=== PATIENT | male | born 2000 | race Two or more races ===

== ENCOUNTER 2021-02-10 16:48 | Emergency (ER) | payer OTHER ==
[2021-02-10] MEDS ORDERED: BUFFERED LIDOCAINE 10 ML SYRINGE SUBQ STA (16:54)
--- NOTE | 2021-02-10 16:55 | ED Physician Documentation ---
PD HPI WOUND RECHECK - Stated complaint Stated Complaint: LUMP ON WAIST - Histroy obtained from History obtained from: Patient (Worsening painful lump on the waistline for the last 6 months, much worse over the last few days with now redness and pain. No fevers.) Review of Systems Constitutional: reports: Reviewed and negative Eyes: reports: Reviewed and negative Ears: reports: Reviewed and negative Nose: reports: Reviewed and negative PD PAST MEDICAL HISTORY - Present Medications Home Medications: Ambulatory Orders Medication Instructions Recorded Confirmed HYDROcod/ACETAM 5/325 [[place] 5/325] 1 - 2 tab PO Q6H PRN #10 tablet 02/10/21 cephALEXin [Keflex] 500 mg PO Q6H #28 cap 02/10/21 - Allergies Allergies/Adverse Reactions: Allergies Allergy/AdvReac Type Severity Reaction Status Date / Time No Known Drug Allergies Allergy Verified 02/10/21 16:52 PD ED PE NORMAL - Vitals Vital signs reviewed: Yes - General General: Alert and oriented X 3, No acute distress - Derm Derm: Other (On the pubis he has what looks like an ingrown hair with surrounding cellulitis) - Neuro Neuro: Alert and oriented X 3, Normal speech Results - Vitals Vitals: Vital Signs - 24 hr 02/10/21 16:53 Temperature 37.1 C Heart Rate 88 Respiratory 20 Rate Blood Pressure 143/90 H O2 Saturation 97 Oxygen O2 Source Room air PD MEDICAL DECISION MAKING - ED course ED course: It looks like a pustular ingrown hair with surrounding cellulitis. It was locally infiltrated with buffered lidocaine and draped and then a stab incision was made and surprisingly no pus was obtained. Departure - Departure Disposition: 01 Home, Self Care Clinical Impression: Skin lesion, Cellulitis Condition: Good Record reviewed to determine appropriate education?: Yes Instructions: ED Infec Skin Cellulitis Prescriptions: cephALEXin [Keflex] 500 mg PO Q6H #28 cap HYDROcod/ACETAM 5/325 [[place] 5/325] 1 - 2 tab PO Q6H PRN #10 tablet PRN Reason: Pain Comments: Followup with your flight surgeon, discuss dermatology referral or biopsy As they feel appropriate. Return for new or worsening symptoms. I am prescribing a short course of narcotic pain medication for you. These are potentially dangerous and addictive medications that should be used carefully. These medications may constipate you. Take an lhzc-qxz-tiefqru stool softener (docusate) twice daily with plenty of water while taking these medications. If you go 24 hours without a bowel movement, take [id number] miralax, per package instructions. Do not drink or drive while taking these medications. If you received narcotic or sedating medications while in the emergency department, do not drive for 24 hours. Store this medication in a safe, secure place and out of reach of children. It is a violation of federal law to give or sell this medication to another person or to use in a manner other than prescribed. The ED will not refill narcotic prescriptions, including prescriptions lost or stolen. To dispose of unwanted medications: 1. [facility] [address] in [place] has a medication drop box. They accept prescription medications (in pill form) Monday through Monday 9:00 a.m. to 5:00 p.m. 2. The [facility] [employer] accepts prescription medications (in pill form only) for disposal year round. Call for more information. 3. Contact the [facility] for the next [facility] sponsored prescription drug collection event. , [phone], or [phone]; Note that many narcotic pain relievers also contain Tylenol/acetaminophen. Please ensure that your total dose of acetaminophen from all sources does not exceed 3 g (3000 mg) per day.
[2021-02-10 17:04] VITALS: BP 143/90
[2021-02-10] MEDS ORDERED: cephALEXin 250 MG CAPSULE PO STA (17:26)
== END 2021-02-10 17:47 | disposition home or self-care (01) ==
LOC: ED 16:48
DX: L03.319 Cellulitis of trunk, unspecified (principal)
CPT/HCPCS: 10060; 99282; 99283; A9270

== ENCOUNTER 2021-08-06 12:53 | Emergency (ER) | payer OTHER ==
--- NOTE | 2021-08-06 14:14 | XRAY Report ---
PROCEDURE: Elbow 3 View RT, x-ray INDICATIONS: Trauma TECHNIQUE: 3 views of the elbow were acquired. COMPARISON: None FINDINGS: Bones: No fractures or dislocations. No suspicious bony lesions. Soft tissues: No elbow joint effusion. No suspicious soft tissue calcifications. IMPRESSION: Unremarkable elbow radiographs Reviewed by: Tyrone Membreno MD on 08/06/2021 1:13 PM [facility] Approved by: Tyrone Membreno MD on 08/06/2021 1:13 PM [facility] Station ID: [id number]
--- NOTE | 2021-08-06 14:49 | ED Physician Documentation ---
History of Present Illness - Stated complaint Stated Complaint: RT ELBOW INJURY - Chief complaint Chief Complaint: Ext Problem - Additonal information Additional information: 21-year-old male presents the emergency department for evaluation of acute right elbow pain. He was arm wrestling about 5 days ago and felt a pull on the medial side of the elbow. Yesterday he was changing a tire on his vehicle and had to use a lot of strength and torque to loosen the leg not. He has had persistent pain in the elbow since. No falls or known trauma. Patient is right arm dominant. Review of Systems Constitutional: denies: Fever Ears: reports: Reviewed and negative Nose: reports: Reviewed and negative Throat: reports: Reviewed and negative GI: reports: Reviewed and negative : reports: Reviewed and negative Skin: reports: Reviewed and negative Musculoskeletal: reports: Joint pain (right elbow) Neurologic: reports: Reviewed and negative PD PAST MEDICAL HISTORY - Past Medical History Past Medical History: No Cardiovascular: None Respiratory: None Neuro: None Endocrine/Autoimmune: None GI: None : None HEENT: None Psych: None Musculoskeletal: None Derm: None - Past Surgical History Past Surgical History: Yes HEENT: Tonsil/Adenoidectomy - Present Medications Home Medications: Ambulatory Orders Medication Instructions Recorded Confirmed HYDROcod/ACETAM 5/325 [[place] 5/325] 1 - 2 tab PO Q6H PRN #10 tablet 02/10/21 cephALEXin [Keflex] 500 mg PO Q6H #28 cap 02/10/21 - Allergies Allergies/Adverse Reactions: Allergies Allergy/AdvReac Type Severity Reaction Status Date / Time No Known Drug Allergies Allergy Verified 08/06/21 13:22 - Social History Does the pt smoke?: No Smoking Status: Never smoker Does the pt drink ETOH?: Yes Does the pt have substance abuse?: No - Immunizations Immunizations are current?: Yes - POLST Patient has POLST: No PD ED PE EXPANDED - Extremities Extremities: Right elbow (No swelling ecchymosis or erythema. Normal supination and pronation of the forearm. Normal strength against resistance. Some pain medially with resistance maneuvers) Results - Vitals Vitals: Vital Signs - 24 hr 08/06/21 13:15 Temperature 36.3 C L Heart Rate 85 Respiratory 16 Rate Blood Pressure 133/74 H O2 Saturation 97 Oxygen O2 Source Room air - Rads (name of study) right elbow Radiology: Final report received (Unremarkable right elbow radiographs. No obvious fracture or dislocation.) PD MEDICAL DECISION MAKING - ED course Complexity details: reviewed results, re-evaluated patient, d/w patient ED course: Well-appearing 21-year-old male presents emergency department for evaluation of acute right elbow pain after arm wrestling and then changing a tire over the last 4 to 5 days. No swelling or deformity. No fevers. Low suspicion for septic arthritis. On exam pain is experienced medially with resistance exercises. X-ray without acute abnormality. History indicative of a right elbow sprain. Patient given an Rashel wrap and recommended Tylenol and ibuprofen. Follow-up with [facility] if not better in 7 to 10 days. Departure - Departure Disposition: 01 Home, Self Care Clinical Impression: Sprain of right elbow Qualifiers: Encounter type: initial encounter Qualified Code(s): S53.401A - Unspecified sprain of right elbow, initial encounter Condition: Stable Record reviewed to determine appropriate education?: Yes Instructions: ED Sprain Elbow Comments: The x-ray of your elbow is normal. You have sprained the elbow by stressing it too hard when changing the tire and arm wrestling. Recommend that you take Tylenol and ibuprofen [id number] for any discomfort. Continue to use the Rashel wrap or an elbow sleeve when out of bed for the next week. Typically elbow sprains will resolve in 7 to 10 days. If not better follow-up with [facility]. You may benefit from referral to physical therapy. I do recommend that you limit pushing pulling exercises or lifting heavier than 5 to 10 pounds over the next week
[2021-08-06 14:53] VITALS: BP 139/70
== END 2021-08-06 14:53 | disposition home or self-care (01) ==
LOC: ED 12:53
DX: S53.401A Unspecified sprain of right elbow, initial encounter (principal); X50.0XXA Overexertion from strenuous movement or load, initial encounter; Y93.72 Activity, wrestling
CPT/HCPCS: 99281; 99283